=== PATIENT | male | born 1985 | race Caucasian/White ===

== ENCOUNTER 2023-04-10 16:20 | Outpatient (CLI) | payer OTHER, SELFPAY | END 2023-04-10 16:21 | disposition home or self-care (01) | LOC: NFLDREF 04-13 07:26 | PROVIDERS: Visit Provider Nurse Practitioner Family | DX: R30.0 Dysuria (principal); N39.0 Urinary tract infection, site not specified | CPT/HCPCS: 87086; 87186 ==

== ENCOUNTER 2024-05-07 09:17 | Emergency (ER) | payer OTHER, SELFPAY ==
[2024-05-07 09:22] VITALS: BP 143/83; PULSE 86; RESP 18; TEMP 36.4; O2SAT 99; BMI 44.5
--- NOTE | 2024-05-07 09:39 | ED_ITS ---
HPI - Male Genitourinary General Time Seen by Provider: 09:39 Date Seen: 05/07/24 Chief complaint: Urogenital Problems, Male Stated complaint: UTI - lower back pain/groin Time Seen by Provider: 05/07/24 09:39 Source: patient and RN notes reviewed Mode of arrival: ambulatory Limitations: no limitations History of Present Illness HPI Narrative: This very pleasant 38-year-old gentleman is coming into the ER after contacting his clinic for concern UTI complications. Patient has underlying spina bifida, does do self catheterization. He does have a history of urinary tract infections. We did see him in our system in March of 2023 with a pansensitive E coli UTI. His history is complicated by a recent diagnosis of a UTI at [facility] urgent care cefadroxil for 7 days. He completed his antibiotic this past , by a Monday he was having some malodorous urine again. He has had no fevers, no nausea or vomiting. Upon awakening this morning. He had some right flank pain, lower abdominal discomfort, groin discomfort, the groin was more on the left side, does have some mild left testicular discomfort. He does report history of epididymitis. His urine was quite cloudy and painful this morning, noticed some mucus as well, did not notice any blood. He is not feeling any flank discomfort now, abdominal symptoms are better. He has noted some a urinary leaking that started during the treatment of the urinary tract infection. He believes he did feel better while on the antibiotics with the exception of the urine leaking. Related Data Home Medications ?Medication ?Instructions ?Recorded ?Confirmed albuterol sulfate 90 mcg/actuation 2 puff inhalation Q4-6H PRN 04/10/23 05/07/24 aerosol inhaler omeprazole 20 mg capsule,delayed 20 mg PO DAILY 04/10/23 05/07/24 release sertraline 50 mg tablet 50 mg PO DAILY 04/10/23 11/07/23 Claritin-D 24 Hour 05/07/24 Previous Rx's ?Medication ?Instructions ?Recorded ciprofloxacin HCl 500 mg tablet 500 mg PO BID #20 tabs 05/07/24 Allergies Allergy/AdvReac Type Severity Reaction Status Date / Time nitrofurantoin AdvReac Intermediate stomach Verified 11/07/23 13:26 [From Macrodantin] ache sulfamethoxazole AdvReac Intermediate stomach Verified 11/07/23 13:26 [From ] upset trimethoprim [From ] AdvReac Intermediate stomach Verified 11/07/23 13:26 upset Review of Systems Status of ROS: Reports: 6 or more systems reviewed and unremarkable except as noted in History and below [facility] Medical History Spina bifida ?Q05.9 - Spina bifida, unspecified (ICD-10) Hydrocephalus ?G91.9 - Hydrocephalus, unspecified (ICD-10) Urinary tract infection ?N39.0 - Urinary tract infection, site not specified (ICD-10) Surgical History Hx of tonsillectomy ?Z90.89 - Acquired absence of other organs (ICD-10) [employer]IMAL BIOLOGIST (ventriculoperitoneal) shunt status ?Z98.2 - Presence of cerebrospinal fluid drainage device (ICD-10) Exam Const: Vital Signs, click to edit/add: Vital Signs - 24 hr 05/07/24 09:22 Temperature 97.6 F Pulse Rate [Pulse Oximeter] 86 Respiratory Rate 18 Blood Pressure [Le ft Upper Arm] 143/83 H Pulse Oximetry 99 Very pleasant 38-year-old gentleman is alert, interactive, no apparent distress. Is seated in his wheelchair, does move himself over to the ED bed for complete examination. Sclera clear, conjugate gaze. Able to speak in complete sentences. CV regular rate and rhythm, no murmur. Lungs are clear, no tachypnea, no accessory muscle use. Abdomen is soft, nontender, nondistended, no organomegaly. Penis is retracted into the pubic soft tissue, do see some urinary leaking. Testes are descended bilaterally, do not feel any masses, does complain of mild epididymal pain and testicular pain on examination, nothing on the right. There is no inguinal masses. Documenting provider has reviewed patient's vital signs: yes Course Course ED Course: Nursing staff appropriately collected urine on arrival which is pending. We will get some baseline labs in this patient, do scrotal imaging. He is having no abdominal discomfort or flank discomfort at this time. I do not think we need to proceed with CT imaging. If he is having some retrograde symptoms from ongoing UTI are or incompletely treated UTI, he is not clinically hemodynamically unstable, would not change our management as far as treatment of a pyelonephritis at this time. He does look like he could be managed outpatient regardless. Reevaluation(s) Time of Reevaluation #1: 11:08 Reevaluation #1: Reviewed laboratory findings and ultrasound findings with patient. Did review the small right hydrocele. He notes he has had a history of a left hydrocele. I did review that sometimes the fluid levels in these can very. In any event, there are no concerning changes of infectious etiologies with in the scrotal ultrasound report. Was able to obtain his urine culture results from April 25. This showed [id number] E coli which was pansensitive. Plan will be to do slightly longer course given the fact that he does do self catheterization. Will cover with different class with Cipro for antibiotics at this time. He does not require any hospitalization nor any further imaging. Vital Signs Vital signs: Initial Vital Signs Temperature 97.6 F 05/07/24 09:22 Temperature Source Temporal Artery Scan 05/07/24 09:22 Pulse Rate 86 05/07/24 09:22 Respiratory Rate 18 05/07/24 09:22 Blood Pressure 143/83 H 05/07/24 09:22 Blood Pressure Mean 103 05/07/24 09:22 Blood Pressure Position Sitting 05/07/24 09:22 Pulse Oximetry 99 05/07/24 09:22 Vital Signs Temperature 97.6 F 05/07/24 09:22 Pulse Rate 86 05/07/24 09:22 Respiratory Rate 18 05/07/24 09:22 Blood Pressure 143/83 H 05/07/24 09:22 Pulse Oximetry 99 05/07/24 09:22 Temperature 97.6 F 05/07/24 09:22 Pulse Rate 86 05/07/24 09:22 Respiratory Rate 18 05/07/24 09:22 Blood Pressure 143/83 H 05/07/24 09:22 Pulse Oximetry 99 05/07/24 09:22 MDM - Male Genitourinary Lab Data Attestation: I reviewed the patient's lab results. Labs: Lab Results 05/07/24 05/07/24 Range/Units 09:30 09:57 WBC 7.71 (4.50-11.00) K/uL RBC 5.44 (4.30-5.90) m/uL Hgb 16.1 (13.5-17.5) gm/dL Hct 48.7 (37.0-53.0) % MCV 90 (80-100) fL MCH 30 (26-34) pg MCHC 33 (32-36) gm/dL RDW Coeff of Maddison 12.0 (11.5-15.5) % Plt Count 246 (140-440) K/uL Neut % (Auto) 69.0 (42.0-72.0) % Lymph % (Auto) 23.9 (20-44) % Dawson % (Auto) 5.3 (0.0-11.0) % Eos % (Auto) 1.4 (0.0-7.0) % Baso % (Auto) 0.3 (0.0-3.0) % Neut # (Auto) 5.32 (1.7-7.0) K/uL Lymph # (Auto) 1.84 (0.90-2.90) K/uL Dawson # (Auto) 0.40 (0.00-0.90) K/UL Eos # (Auto) 0.11 (0.00-0.50) K/uL Baso # (Auto) 0.02 (0.00-0.30) K/uL Abs Immat Gran (auto) 0.01 (0.00-0.30) K/uL Imm/Tot Granulo (auto) 0.1 % Sodium 140 (135-149) mmol/L Potassium 4.0 (3.6-5.1) mmol/L Chloride 106 (96-114) mmol/L Carbon Dioxide 25 (20-32) mmol/L Anion Gap 9 (7-15) mEq/L BUN 16 (5-24) mg/dL Creatinine 0.8 (0.5-1.5) mg/dL Estimated Creat Clear 131.81 Estimated GFR 118 ml/min Glucose 108 (60-115) mg/dL Calcium 9.0 (8.4-10.6) mg/dL Urine Color Yellow (Yellow) Urine Appearance Clear (Clear) Urine pH 6.5 (5.0-8.5) Ur Specific [place] 1.010 (1.000-1.030) Urine Protein Negative (Negative) Urine Glucose (UA) Negative (Negative) Urine Ketones Negative (Negative) Urine Blood Trace-lysed A (Negative) Urine Nitrite Negative (Negative) Urine Bilirubin Negative (Negative) Urine Urobilinogen 0.2 (0.2-1.0) Ur Leukocyte Esterase 1+ A (Negative) Urine RBC 0-2 (0-2) Urine WBC 10-25 A (0-5) Ur Squamous Epith Cells Few (None-Few) Urine Bacteria Few A (None) Imaging Data US scrotum: Attestation: I have reviewed the pertinent imaging results. Radiologist's impression: Patient: SUSANA BARR Facility:?[facility] Patient ID:?[id number] Site Patient ID:?[id number]. Site :?[id number] Study:?US-Testicle -05/07/2024 10:29:29 AM Ordering Physician:Vanda Wilks Final Report: INDICATION: Left scrotal pain. COMPARISON: None available. TECHNIQUE: Grayscale and spectral Doppler ultrasound of the scrotum. FINDINGS: Right Testicle: Size: 2.9 x 2.7 x 4.3cm. Echotexture: Homogeneous. 3 mm linear echogenic nonshadowing focus in the posterior aspect of the lower pole of the right testicle without associated solid elements or vascularity on color Doppler consistent with a calcification. Color and Spectral Doppler blood flow: Color Doppler US demonstrates symmetrical intraparenchymal blood flow compared to the contralateral testis. Arterial and venous spectral Doppler blood flow is documented.Right Epididymis: Unremarkable. Varicocele: Absent. Hydrocele: Small. Left Testicle: Size: 3.4 x 3 x 4.3cm. Echotexture: Homogeneous. Color and Spectral Doppler blood flow: Color Doppler US demonstrates symmetrical intraparenchymal blood flow compared to the contralateral testis. Arterial and venous spectral Doppler blood flow is documented. Left Epididymis: Punctate echogenic foci within the left epididymal body could be due to small calcifications. Such findings have been described in association with the sequela of chronic epididymitis. No sign of acute epididymitis. Varicocele: Absent. Hydrocele: Absent. Soft tissues: Unremarkable. IMPRESSION: 1. No sonographic findings to explain left scrotal pain. Specifically, no evidence of left testicular torsion or acute epididymo-orchitis. 2. Nonspecific right testicular parenchymal calcification described above. 3. Small right hydrocele. Dictated by Lobo Hudson MD @ 05/07/2024 10:40:20 AM (Electronic Signature) Critical Care Time Critical Care Time Critical Care Time: No Discharge Plan Discharge Clinical Impression: Urinary tract infection Patient Disposition: Home, Self-Care Condition: Stable Instructions: Urinary Tract Infection in Men (ED) Additional Instructions: Start antibiotics as soon as possible and take as prescribed. Drink adequate fluids to help keep the bladder flushed. If you are not improving on the current antibiotic, feel you are worsening at any point, develops fevers with this, do need to seek re-evaluation. Activity Level: No Restrictions Discharge Diet: Regular Prescriptions: New ciprofloxacin HCl 500 mg tablet 500 mg PO BID Qty: 20 0RF No Action omeprazole 20 mg capsule,delayed release(DR/EC) 20 mg PO DAILY sertraline 50 mg tablet 50 mg PO DAILY albuterol sulfate 90 mcg/actuation HFA aerosol inhaler 2 puff inhalation Q4-6H PRN Claritin-D 24 Hour Follow Up/Referrals: Provider,Not a Local [Primary Care Provider] - Stand Alone Forms: [facility] Info Instructions
[2024-05-07 09:45] LABS: Appearance Urine Clear (Clear); Bilirubin Urine Negative (Negative); Blood Urine Trace-lysed (Negative); Color Urine Yellow (Yellow); Glucose Urine Negative (Negative); Ketones Urine Negative (Negative); Leukocyte Esterase Urine 1+ (Negative); Nitrite Urine Negative (Negative); Protein Urine Negative (Negative); Urobilinogen Urine 0.2 (0.2-1.0); pH Urine 6.5 (5.0-8.5)
--- NOTE | 2024-05-07 09:47 | CRLHL7_ITS ---
For Patients: As a result of the Century Cures Act, medical imaging exams and procedure reports are released immediately into your electronic medical record. You may view this report before your referring provider. If you have questions, please contact your health care provider. INDICATION: Left scrotal pain. COMPARISON: None available. TECHNIQUE: Grayscale and spectral Doppler ultrasound of the scrotum. FINDINGS: Right Testicle: Size: 2.9 x 2.7 x 4.3cm. Echotexture: Homogeneous. 3 mm linear echogenic nonshadowing focus in the posterior aspect of the lower pole of the right testicle without associated solid elements or vascularity on color Doppler consistent with a calcification. Color and Spectral Doppler blood flow: Color Doppler US demonstrates symmetrical intraparenchymal blood flow compared to the contralateral testis. Arterial and venous spectral Doppler blood flow is documented.Right Epididymis: Unremarkable. Varicocele: Absent. Hydrocele: Small. Left Testicle: Size: 3.4 x 3 x 4.3cm. Echotexture: Homogeneous. Color and Spectral Doppler blood flow: Color Doppler US demonstrates symmetrical intraparenchymal blood flow compared to the contralateral testis. Arterial and venous spectral Doppler blood flow is documented. Left Epididymis: Punctate echogenic foci within the left epididymal body could be due to small calcifications. Such findings have been described in association with the sequela of chronic epididymitis. No sign of acute epididymitis. Varicocele: Absent. Hydrocele: Absent. Soft tissues: Unremarkable. IMPRESSION: 1. No sonographic findings to explain left scrotal pain. Specifically, no evidence of left testicular torsion or acute epididymo-orchitis. 2. Nonspecific right testicular parenchymal calcification described above. 3. Small right hydrocele. Dictated by Lobo Hudson MD @ 05/07/2024 10:40:20 AM (Electronically Signed)
[2024-05-07 09:57] LABS: Bacteria Urine Few; RBC Urine 0-2 (0-2); Squamous Epithelial Cell Urine Few (None-Few)
[2024-05-07 10:04] LABS: Basophils Absolute Auto 0.02 K/uL (0.00-0.30); Basophils Percent Auto 0.3 % (0.0-3.0); Eosinophils Absolute Auto 0.11 K/uL (0.00-0.50); Eosinophils Percent Auto 1.4 % (0.0-7.0); Hematocrit 48.7 % (37.0-53.0); Hemoglobin* 16.1 gm/dL (13.5-17.5); Immature Granulocytes Abs Auto 0.01 K/uL (0.00-0.30); Immature Granulocytes Pct Auto 0.1 %; Lymphocytes Absolute Auto 1.84 K/uL (0.90-2.90); Lymphocytes Percent Auto 23.9 % (20-44); Mean Corpuscular HGB Conc 33 gm/dL (32-36); Mean Corpuscular Hemoglobin 30 pg (26-34); Mean Corpuscular Volume 90 fL (80-100); Monocytes Percent Auto 5.3 % (0.0-11.0); Neutrophils Absolute Auto 5.32 K/uL (1.7-7.0); Platelet Count* 246 K/uL (140-440); Red Blood Count 5.44 m/uL (4.30-5.90); White Blood Count* 7.71 K/uL (4.50-11.00)
[2024-05-07 10:07] LABS: Slide Review Reflex No
[2024-05-07 10:18] LABS: Chloride* 106 mmol/L (96-114); Sodium* 140 mmol/L (135-149)
[2024-05-07 10:21] LABS: Anion Gap 9 mEq/L (7-15); Blood Urea Nitrogen* 16 mg/dL (5-24); Carbon Dioxide* 25 mmol/L (20-32); Creatinine* 0.8 mg/dL (0.5-1.5); Est. Creatinine Clearance* 131.81; Estimated Glomerular Filt Rate 118 ml/min; Glucose* 108 mg/dL (60-115)
== END 2024-05-07 11:22 | disposition home or self-care (01) ==
PROVIDERS: Emergency Provider Family Medicine
DX: N39.0 Urinary tract infection, site not specified (principal); N51 Disorders of male genital organs in diseases classified elsewhere
CPT/HCPCS: 36415; 76870; 80048; 81001; 85025; 87086; 87186; 93976; 99284

== ENCOUNTER 2024-09-12 08:39 | Outpatient (CLI) | payer OTHER, SELFPAY | END 2024-09-12 08:40 | disposition home or self-care (01) | LOC: NFLDREF 09-14 20:07 | PROVIDERS: Visit Provider Physician Assistant | DX: N39.0 Urinary tract infection, site not specified (principal) | CPT/HCPCS: 87086 ==

== ENCOUNTER 2025-04-12 10:22 | Outpatient (CLI) | payer OTHER, SELFPAY | END 2025-04-12 10:23 | disposition home or self-care (01) | LOC: NFLDREF 04-16 12:13 | PROVIDERS: Visit Provider Physician Assistant Surgical | DX: N30.00 Acute cystitis without hematuria (principal); N30.20 Other chronic cystitis without hematuria; B95.61 Methicillin susceptible Staphylococcus aureus infection as the cause of diseases classified elsewhere | CPT/HCPCS: 87086; 87186 ==

== ENCOUNTER 2025-07-29 15:07 | Emergency (ER) | payer OTHER, SELFPAY ==
[2025-07-29 15:13] VITALS: BP 148/83; PULSE 90; RESP 18; TEMP 36.3; O2SAT 99
[2025-07-29 15:36] LABS: Appearance Urine Clear (Clear)
--- NOTE | 2025-07-29 17:34 | ED.MALEGU ---
HPI - Male Genitourinary General Chief complaint: Urogenital Problems, Male Stated complaint: UTI Time Seen by Provider: 07/29/25 16:20 Source: patient Mode of arrival: wheelchair Limitations: no limitations History of Present Illness HPI Narrative: Patient is a 39-year-old with a history of spina bifida, ureter and bladder, recurrent UTIs presenting to the emergency department for concerns of a UTI. He states he since has had UTIs multiple times to the past few years. Most recent 1 was a couple weeks ago. He started on 5 days of ciprofloxacin. States he is using given 10 days of ciprofloxacin. The states usually he feels better after the 10 day course of Cipro but states he did not have any improvement in symptoms. States he is having dark foul-smelling urine and appears to be passing some sediment. He is concerned he may be developing resistance to Cipro. He has low concern for STIs as he has been sexually active with the same person for 5 years. He states they are monogamous. He does report he self caths in states he recently started using iodine to clean the area again. Denies fevers, chills, chest pain, abdominal pain. He does state he has some reviewed dysuria placed states toe is hard for him to definitively say because his pain is in insert is not similar to other people's pain and dysuria to him feels more like a sharp pain that shoots up through his groin. No other concerns noted. Has not noticed any discharge coming from his urethra. Related Data Home Medications ?Medication ?Instructions ?Recorded ?Confirmed albuterol sulfate 90 mcg/actuation 2 puff inhalation Q4-6H PRN 04/10/23 04/12/25 aerosol inhaler omeprazole 20 mg capsule,delayed 20 mg PO DAILY 04/10/23 04/12/25 release buspirone 5 mg tablet 5 mg PO BID 09/12/24 04/12/25 epinephrine 0.3 mg/0.3 mL 0.3 ml IM anaphylaxis 04/12/25 04/12/25 injection, auto-injector loratadine-pseudoephedrine ER 10 1 tab PO QDAY 04/12/25 04/12/25 mg-240 mg tablet,extended [id number] (Claritin-D 24 Hour) Previous Rx's ?Medication ?Instructions ?Recorded doxycycline monohydrate 100 mg 100 mg PO BID #20 caps 07/29/25 capsule Allergies Allergy/AdvReac Type Severity Reaction Status Date / Time cat dander Allergy Verified 04/12/25 10:15 latex Allergy Verified 04/12/25 10:15 watermelon Allergy Verified 04/12/25 10:15 nitrofurantoin (From AdvReac Intermediate stomach Verified 04/12/25 10:15 Macrodantin) ache sulfamethoxazole (From AdvReac Intermediate stomach Verified 04/12/25 10:15 Septra) upset trimethoprim (From Septra) AdvReac Intermediate stomach Verified 04/12/25 10:15 upset Review of Systems Narrative: Pertinent systems reviewed and were negative unless stated in HPI PFSH PFSH Medical History Spina bifida ?Q05.9 - Spina bifida, unspecified (ICD-10) Hydrocephalus ?G91.9 - Hydrocephalus, unspecified (ICD-10) Urinary tract infection ?N39.0 - Urinary tract infection, site not specified (ICD-10) Surgical History Hx of tonsillectomy ?Z90.89 - Acquired absence of other organs (ICD-10) CHICKEN CUTTER (ventriculoperitoneal) shunt status ?Z98.2 - Presence of cerebrospinal fluid drainage device (ICD-10) Social History Smoking Status: Never smoker How often do you have a drink containing alcohol: never AUDIT-C Alcohol total score: 0 Non-prescribed substance use: denies use Exam Const: Vital Signs, click to edit/add: Vital Signs - 24 hr 07/29/25 15:13 07/29/25 18:44 Temperature 97.3 F L Pulse Rate [Right Pulse Oximeter] 90 69 Respiratory Rate 18 18 Blood Pressure [Ri ght Upper Arm] 148/83 H 132/75 Pulse Oximetry 99 98 Oxygen Delivery Me thod Room Air Room Air Course Vital Signs Vital signs: Initial Vital Signs Temperature 97.3 F L 07/29/25 15:13 Temperature Source Temporal Artery Scan 07/29/25 15:13 Pulse Rate 90 07/29/25 15:13 Respiratory Rate 18 07/29/25 15:13 Blood Pressure 148/83 H 07/29/25 15:13 Blood Pressure Mean 104 07/29/25 15:13 Blood Pressure Position Sitting 07/29/25 15:13 Pulse Oximetry 99 07/29/25 15:13 Oxygen Delivery Method Room Air 07/29/25 15:13 Vital Signs Temperature 97.3 F L 07/29/25 15:13 Pulse Rate 90 07/29/25 15:13 Respiratory Rate 18 07/29/25 15:13 Blood Pressure 148/83 H 07/29/25 15:13 Pulse Oximetry 99 07/29/25 15:13 Oxygen Delivery Method Room Air 07/29/25 15:13 Temperature 97.3 F L 07/29/25 15:13 Pulse Rate 69 07/29/25 18:44 Respiratory Rate 18 07/29/25 18:44 Blood Pressure 132/75 07/29/25 18:44 Pulse Oximetry 98 07/29/25 18:44 Oxygen Delivery Method Room Air 07/29/25 18:44 MDM - Male Genitourinary MDM Narrative Medical decision making narrative: Patient is a 40-year-old presenting to emergency department for concerns of UTIs. His urinalysis returns showing +2 leukocyte esterases and 5-10 white blood cells. There is no bacteria in her urine though. This does not mean there is not a UTI. I spoke to him and he is agreeable to do a chlamydia and gonorrhea panel. Gonorrhea and chlamydia were negative. Attack consider 9 lactic sinus urinalysis and regular is a is a will treat this as an UTI especially considering his history. As the Cipro at not help signs recently I will do doxycycline since his previous UTIs were pansenstive Lab Data Labs: Lab Results 07/29/25 Range/Units 15:25 Urine Color Yellow (Yellow) Urine Appearance Clear (Clear) Urine pH 7.0 (5.0-8.5) Ur Specific [place] 1.010 (1.000-1.030) Urine Protein Negative (Negative) Urine Glucose (UA) Negative (Negative) Urine Ketones Negative (Negative) Urine Blood Trace-intact A (Negative) Urine Nitrite Negative (Negative) Urine Bilirubin Negative (Negative) Urine Urobilinogen 0.2 (0.2-1.0) Ur Leukocyte Esterase 2+ A (Negative) Urine RBC 0-2 (0-2) Urine WBC 5-10 A (0-5) Ur Squamous Epith Cells Few (None-Few) Urine Bacteria None (None) C.trachomatis Ampl DNA NOT DETECTED (No Detected) N.gonorrhoeae Ampl DNA NOT DETECTED (No Detected) Discharge Plan Discharge Clinical Impression: Urinary tract infection Qualifiers: Urinary tract infection type: acute cystitis Hematuria presence: without hematuria Qualified Code(s): N30.00 - Acute cystitis without hematuria Patient Disposition: Home, Self-Care Condition: Stable Instructions: Catheter-associated Urinary Tract Infection (ED) Additional Instructions: Take doxycycline as after directed for 10 days and. It and recommend straight cathing as sterilely as possible using gloves and Betadine Prescriptions: New doxycycline monohydrate 100 mg capsule 100 mg PO BID Qty: 20 0RF No Action Claritin-D 24 Hour 10-240 mg tablet extended release 24 hr 1 tab PO QDAY epinephrine 0.3 mg/0.3 mL auto-injector 0.3 ml IM omeprazole 20 mg capsule,delayed release(DR/EC) 20 mg PO DAILY albuterol sulfate 90 mcg/actuation HFA aerosol inhaler 2 puff inhalation Q4-6H PRN buspirone 5 mg tablet 5 mg PO BID Follow Up/Referrals: Provider,Not a Local [Primary Care Provider, Family Practice] Stand Alone Forms: [facility] Info Instructions
[2025-07-29 18:43] LABS: Chlamydia DNA Amplified* NOT DETECTED (No Detected); GC DNA Amplified* NOT DETECTED (No Detected)
[2025-07-29 18:44] VITALS: BP 132/75; PULSE 69; RESP 18; O2SAT 98
== END 2025-07-29 18:53 | disposition home or self-care (01) ==
PROVIDERS: Emergency Provider Student in an Organized Health Care Education/Training Program
DX: N39.0 Urinary tract infection, site not specified (principal); Z11.3 Encounter for screening for infections with a predominantly sexual mode of transmission
CPT/HCPCS: 81001; 87086; 87491; 87591; 99282; 99283